=== PATIENT | male | born 1950 | race Caucasian/White ===

== ENCOUNTER 2017-07-22 22:23 | Emergency (ER) | payer OTHER ==
[~2017-07-22] VITALS: Ht 170.2 cm; Wt 68.2 kg
[2017-07-22 22:52] LABS: GLUCOSE,POINT OF CARE 103 MG/DL (70-110)
[2017-07-22] MEDS ORDERED: NIFE90TA45 PO (23:07)
[2017-07-22] MEDS ORDERED: ZINC220 PO (23:07)
[2017-07-22] MEDS ORDERED: CEFE1FRO IV (23:07)
[2017-07-22] MEDS ORDERED: SAW1CAPS PO (23:07)
[2017-07-22] MEDS ORDERED: CLOP75 PO (23:07)
[2017-07-22] MEDS ORDERED: ASCO500 PO (23:07)
[2017-07-22] MEDS ORDERED: ASPI81TA39 PO (23:07)
[2017-07-22] MEDS ORDERED: VANC750F IV (23:07)
[2017-07-22] MEDS ORDERED: ERGO500014 PO (23:07)
[2017-07-22] MEDS ORDERED: [UNRECOGNIZED DRUG - CODE] SQ (23:07)
[2017-07-22] MEDS ORDERED: DULO60CA44 PO (23:07)
[2017-07-22] MEDS ORDERED: MV M PO (23:07)
[2017-07-22] MEDS ORDERED: INSU100C14 SQ (23:07)
[2017-07-22] MEDS ORDERED: TAMS0.4C32 PO (23:07)
[2017-07-22 23:43] LABS: BASOPHILS % (AUTO) 0.4 % (0.0-2.0); EOSINOPHILS % (AUTO) 6.6 % (1.0-6.0); HEMOGLOBIN 10.4 g/dL (13.5-17.5); LYMPHOCYTES # (AUTO) 2.5 K/uL (1.0-4.8); LYMPHOCYTES % (AUTO) 22.9 % (22.0-44.0); MEAN CORPUSCULAR HEMOGLOBIN 31.8 pg (26.0-34.0); MEAN CORPUSCULAR HGB CONC 33.5 G/dL (31.0-37.0); MEAN CORPUSCULAR VOLUME 95 fL (80-100); MONOCYTES % (AUTO) 8.9 % (2.0-9.0); NEUTROPHILS # (AUTO) 6.8 K/uL (1.8-7.7); NEUTROPHILS % (AUTO) 61.2 % (40.0-70.0); PLATELET COUNT (AUTO) 395 K/uL (150-450); RED BLOOD CELL COUNT(AUTO) 3.26 MIL/uL (4.50-5.90)
[2017-07-23 02:03] VITALS: BP 165/93
== END 2017-07-23 02:11 | disposition home or self-care (01) ==
LOC: EMS 22:27
DX: L76.22 Postprocedural hemorrhage of skin and subcutaneous tissue following other procedure (principal); I12.0 Hypertensive chronic kidney disease with stage 5 chronic kidney disease or end stage renal disease; E11.22 Type 2 diabetes mellitus with diabetic chronic kidney disease; N18.6 End stage renal disease; E78.00 Pure hypercholesterolemia, unspecified; F17.210 Nicotine dependence, cigarettes, uncomplicated; Z99.2 Dependence on renal dialysis; Z79.4 Long term (current) use of insulin; Z79.82 Long term (current) use of aspirin; Z86.73 Personal history of transient ischemic attack (TIA), and cerebral infarction without residual deficits
CPT/HCPCS: 82962; 99283